=== PATIENT | female | born 1960 | race Caucasian/White ===

== ENCOUNTER 2019-11-21 20:04 | Emergency (ER) | payer MEDICAID, OTHER ==
[~2019-11-21] VITALS: Ht 154.9 cm; Wt 81.6 kg
[2019-11-21 20:05] VITALS: BP 154/82
--- NOTE | 2019-11-21 20:08 | NUR ---
TO LOBBY A/W BED AMBULATORY
--- NOTE | 2019-11-21 20:34 | NUR ---
PT AMBULATED TO BED 8
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
[2019-11-21] MEDS ORDERED: KETOROLAC 60 MG/2 ML VIAL IM ONE (21:45)
--- NOTE | 2019-11-21 22:25 | NUR ---
PT RETURN FROM XRAY
--- NOTE | 2019-11-21 22:59 | NUR ---
PT SITTING IN CHAIR RESTING. RR EVEN AND UNLABORED. VSS. WILL CONTINUE TO MONITOR
--- NOTE | 2019-11-21 23:01 | NUR ---
PT STATES PAIN HAS DECREASED TO A 6/10 AND HAS HAD SOME PAIN RELIEF FROM PAIN MEDICAITON
[2019-11-22] VITALS: BP 140/78
--- NOTE | 2019-11-22 00:01 | NUR ---
Patient discharged with v/s stable. Written and verbal after care instructions given and explained. Patient alert, oriented and verbalized understanding of instructions. Ambulatory with steady gait. All questions addressed prior to discharge. ID band removed. Patient advised to follow up with PMD. Rx of IBUPROFEN AND FLEXERIL given. Patient educated on indication of medication including possible reaction and side effects. Opportunity to ask questions provided and answered.
== END 2019-11-22 00:01 | disposition home or self-care (01) ==
LOC: MED 20:04
DX: S20.20XA Contusion of thorax, unspecified, initial encounter (principal); I10 Essential (primary) hypertension; V89.2XXA Person injured in unspecified motor-vehicle accident, traffic, initial encounter; Y93.89 Activity, other specified; Y92.89 Other specified places as the place of occurrence of the external cause; Y99.8 Other external cause status
CPT/HCPCS: 71101; 96372; 99283; J1885